=== PATIENT | female | born 1985 | race Caucasian/White ===

== ENCOUNTER 2017-06-26 17:12 | Emergency (ER) | payer SELFPAY ==
[2017-06-26 17:16] VITALS: BP 105/57; PULSE 70; TEMP 98; BMI 27.9
[2017-06-26] MEDS ORDERED: DEXAMETHASONE SOD PHOSPHATE 10 MG/1 ML VIAL ONE (17:54)
[2017-06-26] MEDS ORDERED: diphenhydrAMINE HCL 25 MG CAPSULE (FP) PO ONE ×2 (17:54→18:03)
[2017-06-26] MEDS ORDERED: DEXAMETHASONE SOD PHOSPHATE 10 MG/1 ML VIAL IM ONE (18:04)
--- NOTE | 2017-06-26 18:04 | PDOC ---
History of Present Illness - General Chief Complaint: Allergic Reaction Stated Complaint: ALLERGIC REACTION Time Seen by Provider: 06/26/17 17:42 History Source: Patient Exam Limitations: No Limitations - History of Present Illness Initial Comments: 06/26/17 17:59 Patient was seen in urgent care 2 days ago and started on Carafate and been for nail fungus on her feet. States today had onset of rash that started on her face and quickly progressed to her arms and her abdomen. Patient denies any swelling to lips tongue or mouth, denies any shortness of breath or wheezing. Has taken no medication for relief Timing/Duration: reports: just prior to arrival, getting worse Severity: reports: mild, moderate Associated Symptoms: reports: dizziness. denies: facial pain, fever/chills Past History - Travel Traveled outside of the country in the last 30 days: No Close contact w/someone who was outside of country & ill: No - Past Medical History Allergies/Adverse Reactions: Allergies Allergy/AdvReac Type Severity Reaction Status Date / Time No Known Allergies Allergy Verified 06/26/17 17:16 Home Medications: Ambulatory Orders Diphenhydramine HCl [Benadryl -] 25 mg PO Q8H PRN #21 capsule 06/26/17 Prednisone [Deltasone -] 20 mg PO BID #8 tablet 06/26/17 Asthma: No Cancer: No Cardiac Disorders: No Diabetes: No HTN: No Seizures: No Thyroid Disease: No - Psycho/Social/Smoking Cessation Hx Suicidal Ideation: No Smoking History: Never smoked Have you smoked in the past 12 months: No Information on smoking cessation initiated: No Hx Alcohol Use: No Drug/Substance Use Hx: No Hx Substance Use Treatment: No Review of Systems - Review of Systems Able to Perform ROS?: Yes Is the patient limited Urdu proficient: Yes Constitutional: Yes: Symptoms Reported, See HPI HEENTM: Yes: Symptoms Reported, See HPI, Nose Congestion Respiratory: Yes: See HPI. No: Symptoms reported, Cough, Wheezing : No: Symptoms Reported Musculoskeletal: Yes: Symptoms Reported Integumentary: Yes: Symptoms Reported, Lesions, Pruritus, Rash Neurological: No: Symptoms reported All Other Systems: Reviewed and Negative *Physical Exam - Vital Signs Last Vital Signs Temp Pulse Resp BP Pulse Ox 98 F 70 18 105/57 99 06/26/17 17:13 06/26/17 17:13 06/26/17 17:13 06/26/17 17:13 06/26/17 17:13 - Physical Exam General Appearance: Yes: Nourished, Appropriately Dressed, Apparent Distress HEENT: positive: Normal ENT Inspection, TMs Normal, Pharynx Normal (no swelling to lips, tongue, airway is patent, no airway interruption) Neck: positive: Supple. negative: Tender Respiratory/Chest: positive: Lungs Clear, Normal Breath Sounds. negative: Wheezing Cardiovascular: positive: Regular Rhythm, Regular Rate Gastrointestinal/Abdominal: positive: Soft. negative: Tender Musculoskeletal: positive: Normal Inspection Extremity: positive: Normal Capillary Refill, Normal Inspection, Normal Range of Motion Integumentary: positive: Normal Color, Other (fine neck your papular rash covering all of body including face with erythematous cheeks, and this mildly pruritic fine rash covering shoulders, neck, abdomen. 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 We'll medicate with Benadryl, steroid, and reevaluate Medical Decision Making - Medical Decision Making 06/26/17 18:49 Patient states feels mildly improved after her drawn and Benadryl. No swelling to face, tongue, no breathing problems. We'll discharge with additional 4 days of prednisone and encourage antihistamine use for the next 2 days. Stopping terfenabine *DC/Admit/Observation/Transfer Diagnosis at time of Disposition: Allergic reaction Qualifiers: Encounter type: initial encounter Qualified Code(s): T78.40XA - Allergy, unspecified, initial encounter - Discharge Dispostion Disposition: HOME Condition at time of disposition: Stable Admit: No - Referrals Referrals: Sabrina Yang MD [Primary Care Provider] - - Patient Instructions Printed Discharge Instructions: DI for Adverse Drug Reaction -- Allergic Additional Instructions: Rest, drink lots of fluids: Teas, water, soups Saltwater gargles. Consider humidifier in room at night Steamy showers/seem to face break up mucus Avoid contact with allergens, exposure to pollens, close windows on a windy day Lots of handwashing and good hygiene Continue [id number]-[id number] medications for symptomatic relief- may use allergic eyedrops for itching I Continue antihistamines daily until pollen season is over; Zyrtec, Claritin, Radha during the daytime and Benadryl at nighttime as will make sleepy Tylenol or Motrin for fever and pain Followup with private physician in one to 2 days as needed Consider following up with an marine electrician helper/hand riveter for skin testing and possible allergy shots Return to emergency department for worsened symptoms, fevers, dehydration - Post Discharge Activity Work/School Note: Back to Work
== END 2017-06-26 21:04 | disposition home or self-care (01) ==
LOC: JERFT 17:12
PROC: 3E0233Z Introduction of Anti-inflammatory into Muscle, Percutaneous Approach (ICD-10-PCS; principal; 2017-06-26)
DX: L27.0 Generalized skin eruption due to drugs and medicaments taken internally (principal); T45.0X5A Adverse effect of antiallergic and antiemetic drugs, initial encounter; Y92.039 Unspecified place in apartment as the place of occurrence of the external cause
CPT/HCPCS: 99281-25

== ENCOUNTER 2017-06-30 13:07 | Emergency (ER) | payer SELFPAY ==
[2017-06-30 13:12] VITALS: BP 108/55; PULSE 77; TEMP 98.8; BMI 28.5
--- NOTE | 2017-06-30 13:43 | PDOC ---
History of Present Illness - General Chief Complaint: Rash Stated Complaint: ALLERGIC RXN Time Seen by Provider: 06/30/17 13:22 History Source: Patient - History of Present Illness Timing/Duration: reports: constant Location: reports: generalized Past History - Past Medical History Allergies/Adverse Reactions: Allergies Allergy/AdvReac Type Severity Reaction Status Date / Time No Known Allergies Allergy Verified 06/30/17 13:12 Home Medications: Ambulatory Orders NK [No Known Home Medication] 06/30/17 Asthma: No Cancer: No Cardiac Disorders: No Diabetes: No HTN: No Seizures: No Thyroid Disease: No - Psycho/Social/Smoking Cessation Hx Suicidal Ideation: No Smoking History: Never smoked Have you smoked in the past 12 months: No Hx Alcohol Use: No Drug/Substance Use Hx: No Substance Use Type: None Hx Substance Use Treatment: No Review of Systems - Review of Systems Constitutional: No: Chills, Fever HEENTM: No: Throat Swelling Respiratory: No: Shortness of Breath Integumentary: Yes: Pruritus, Rash *Physical Exam - Vital Signs Last Vital Signs Temp Pulse Resp BP Pulse Ox 98.8 F 77 20 108/55 99 06/30/17 13:08 06/30/17 13:08 06/30/17 13:08 06/30/17 13:08 06/30/17 13:08 - Physical Exam General Appearance: Yes: Appropriately Dressed. No: Apparent Distress HEENT: positive: Normal Voice Neck: positive: Supple Respiratory/Chest: negative: Respiratory Distress Integumentary: positive: Dry, Warm, Rash (fine erythematous papular rash to face , trunk and extremities) Neurologic: positive: Fully Oriented, Alert, Normal Mood/Affect Medical Decision Making - Medical Decision Making 06/30/17 13:46 32-year-old female, denies any past medical history, presents to the ER for second time for rash. Patient was seen in ED approximately 5 days ago complaining of generalized pruritic rash that started 3 days after she was started on po terbinafine for onychomycosis at an urgent care center. On last visit was told to stop taking terbinafine which she has done and was started on benadryl and prednisone. Patient has discontinued medication but states rash is persistent. Denies any tongue swelling, voice changes or shortness of breath. Pt denies food or drug allergies in general and no h/o anaphylaxis. See exam M/l allergic rxn to new meds Has since discontinued meds Rash not better w/ benadryl or prednisone No resp symptoms Stable in ED -Will dc to continue steroids and take claritin or zyrtec as needed for itch -Given derm referral if rash persists 06/30/17 13:54 *DC/Admit/Observation/Transfer Diagnosis at time of Disposition: Rash and nonspecific skin eruption - Discharge Dispostion Disposition: HOME Condition at time of disposition: Good - Referrals Referrals: Coty Willard MD [Staff Physician] - - Patient Instructions Additional Instructions: Contine tomando la prednisona hasta que se complete Si benadryl no ayuda con picazn, tome zrytec o claritin segn sea necesario para picar Por favor, siga con el Dr. Willard de dermatologa si los sntomas persisten - Post Discharge Activity Work/School Note: Back to Work
== END 2017-06-30 13:56 | disposition home or self-care (01) ==
LOC: JERFT 13:07
DX: R21 Rash and other nonspecific skin eruption (principal)
CPT/HCPCS: 99281-25

== ENCOUNTER 2019-05-16 21:11 | Emergency (ER) | payer OTHER ==
[2019-05-16 21:25] VITALS: BMI 29.2
--- NOTE | 2019-05-16 21:34 | PDOC ---
Rapid Medical Evaluation Chief Complaint: Pain Time Seen by Provider: 05/16/19 21:30 Medical Evaluation: Allergies Allergy/AdvReac Type Severity Reaction Status Date / Time No Known Allergies Allergy Verified 05/16/19 21:21 Vital Signs Temp Pulse Resp BP Pulse Ox 98.3 F 92 H 18 123/76 100 05/16/19 21:21 05/16/19 21:21 05/16/19 21:21 05/16/19 21:21 05/16/19 21:21 05/16/19 21:31 Pt c/o: epigastric pain x 2 hrs after eating meat , no other complaints, no gi hx Pt on brief exam: epigastric tenderness with mild rt upper quadrant Pt ordered for: labs, meds, urine, protonix, toradol Pt to proceed to the ED Discharge Disposition - Diagnosis Epigastric pain - Discharge Dispostion Disposition: HOME Condition at time of disposition: Stable - Referrals Referrals: Feroz Johnson DO [Staff Physician] - Mckenzie Fraga DO [Staff Physician] - - Patient Instructions Additional Instructions: If you have recurrent episodes of this pain ,followup with a outpatient coder You may try maalox for relief Avoid fatty or fried foods Print Language: SPA - Post Discharge Activity
[2019-05-16] MEDS ORDERED: PANTOPRAZOLE SODIUM 40 MG in SODIUM CHLORIDE 100 ML IVPB ONE (21:35)
[2019-05-16] MEDS ORDERED: KETOROLAC TROMETHAMINE 30 MG/1 ML VIAL IVPUSH ONE (21:35)
[2019-05-17] MEDS ORDERED: MAG HYDROX/AL HYDROX/SIMETH 30 ML UNIT-DOSE CUP PO ONE (00:07)
[2019-05-17] MEDS ORDERED: PANTOPRAZOLE SODIUM 40 MG/100 ML BAG IVPB ONE (01:39)
[2019-05-17] MEDS ORDERED: KETOROLAC TROMETHAMINE 30 MG/1 ML VIAL ONE (01:39)
[2019-05-17 02:02] LABS: BASO % 0.9 % (0-2.0); EOS % 2.2 % (0-4.5); HEMATOCRIT 39.1 % (32.4-45.2); HEMOGLOBIN 13.4 GM/dL (10.7-15.3); LYMPH % 31.1 % (8-40); MCH 29.4 pg (25.7-33.7); MCHC 34.2 g/dl (32.0-36.0); MEAN PLT VOLUME 8.6 fl (7.5-11.1); MONO % 6.4 % (3.8-10.2); NEUT % 59.4 % (42.8-82.8); PLATELET COUNT 270 K/MM3 (134-434); RBC 4.55 M/mm3 (3.60-5.2); RDW 13.5 % (11.6-15.6); WHITE BLOOD COUNT 8.6 K/mm3 (4.0-10.0)
[2019-05-17 02:53] LABS: ALBUMIN 3.8 g/dl (3.4-5.0); BILIRUBIN,TOTAL 0.3 mg/dL (0.2-1); BLOOD UREA NITROGEN 13.8 mg/dL (7-18); CREATININE 0.8 mg/dL (0.55-1.3); POTASSIUM 4.5 mmol/L (3.5-5.1); TOT PROT 7.8 g/dl (6.4-8.2)
[2019-05-17 03:10] LABS: HCG,QUALITATIVE URINE Negative
--- NOTE | 2019-05-17 03:21 | PDOC ---
Documentation entered by Eladio Herman SCRIBE, acting as scribe for Sofia Velasquez MD. Sofia Velasquez MD: This documentation has been prepared by the aimeeibe, Eladio Herman SCRIBE, under my direction and personally reviewed by me in its entirety. I confirm that the documentation accurately reflects all work, treatment, procedures, and medical decision making performed by me. History of Present Illness - General Chief Complaint: Pain Stated Complaint: ABD PAIN Time Seen by Provider: 05/16/19 21:30 History Source: Patient Exam Limitations: No Limitations - History of Present Illness Initial Comments: 05/16/19 23:58 The patient is a 34 year old female with no significant past medical history who presents to the emergency department with epigastric pain since earlier this evening. The patient states that she had dinner this evening and at about 6 :30 pm she had a sudden onset of sharp epigastric pain that felt like a tightness. She states that since then her epigastric pain has been intermittent. She states that she attempted to relieve her pain with some tea and pain medication with no apparent relief. The patient denies any fever, chills, nausea, vomiting, diarrhea, constipation or urinary symptoms. She denies any chest pain, shortness of breath, headache or dizziness. The patient denies any other complaints. Past History - Past Medical History Allergies/Adverse Reactions: Allergies Allergy/AdvReac Type Severity Reaction Status Date / Time No Known Allergies Allergy Verified 05/16/19 21:21 Home Medications: Ambulatory Orders NK [No Known Home Medication] 06/30/17 Asthma: No Cancer: No Cardiac Disorders: No Diabetes: No HTN: No Seizures: No Thyroid Disease: No - Suicide/Smoking/Psychosocial Hx Smoking History: Never smoked Have you smoked in the past 12 months: No Hx Alcohol Use: No Drug/Substance Use Hx: No Substance Use Type: None Hx Substance Use Treatment: No Review of Systems - Review of Systems Able to Perform ROS?: Yes Comments:: 05/16/19 23:58 CONSTITUTIONAL: Absent: fever, no chills, no fatigue EYES: Absent: visual changes ENT: Absent: ear pain, no sore throat CARDIOVASCULAR: Absent: chest pain, no palpitations RESPIRATORY: Absent: cough, no SOB GI:(+)abdominal pain Absent: no nausea, no vomiting, no constipation, no diarrhea GENITOURINARY: Absent: dysuria, no frequency, no hematuria MUSKULOSKELETAL: Absent: back pain, no arthralgia, no myalgia SKIN: Absent: rash NEURO: Absent: headache *Physical Exam - Vital Signs Last Vital Signs Temp Pulse Resp BP Pulse Ox 98.3 F 92 H 18 123/76 100 05/16/19 21:21 05/16/19 21:21 05/16/19 21:21 05/16/19 21:21 05/16/19 21:21 - Physical Exam Comments: 05/17/19 00:00 GENERAL: Well-appearing, well-nourished. No apparent distress. HEENT: Normocephalic, atraumatic. PERRL, EOM intact. CARDIOVASCULAR: Normal S1, S2. Regular rate and rhythm. PULMONARY: Clear to auscultation bilaterally. ABDOMEN:(+)epigastric pain. Soft, non-distended, non-tender. EXTREMITIES: Normal ROM in all four extremities. No gross deformities. SKIN: Warm, dry. No rash NEUROLOGICAL: No focal neurological deficits. ED Treatment Course - LABORATORY CBC & Chemistry Diagram: 05/17/19 01:50 05/17/19 01:50 - RADIOLOGY Radiology Studies Ordered: Category Date Time Status ABDOMEN US -LIMITED [US] Stat Ultrasound 05/17/19 00:08 Taken Medical Decision Making - Medical Decision Making 05/17/19 02:03 34-year-old female presented with some epigastric pain that started after dinner.she denies nausea, vomiting, however. Ultrasound shows a normal common bile duct diameter 5 mm, unremarkable contracted gallbladder, right kidney and visualized aorta and pancreas are within normal limits fatty liver 05/17/19 02:04 differential includes gallstones, GERD, PUD cBC is unremarkable Chemistries show slight elevation in her LFTs Electrolytes are within normal limits, glucose and renal function are within normal limits She has a negative test 05/17/19 03:20 there is a sl bump in her lfts and she will be referred to GI 05/17/19 03:40 *DC/Admit/Observation/Transfer Diagnosis at time of Disposition: Epigastric pain - Discharge Dispostion Disposition: HOME Condition at time of disposition: Stable - Referrals Referrals: Feroz Johnson DO [Staff Physician] - Mckenzie Fraga DO [Staff Physician] - - Patient Instructions Additional Instructions: If you have recurrent episodes of this pain ,followup with a web content & social media manager You may try maalox for relief Avoid fatty or fried foods Print Language: SPA - Post Discharge Activity
[2019-05-17 03:32] LABS: URINE APPEARANCE CLEAR; URINE BILIRUBIN NEGATIVE (NEGATIVE); URINE COLOR YELLOW; URINE GLUCOSE (UA) NEGATIVE (NEGATIVE); URINE KETONE NEGATIVE (NEGATIVE); URINE LEUK ESTERASE NEGATIVE (NEGATIVE); URINE NITRITE NEGATIVE (NEGATIVE); URINE PROTEIN NEGATIVE (NEGATIVE)
[2019-05-17 05:53] VITALS: BP 120/69; PULSE 75; TEMP 98.4
== END 2019-05-17 04:28 | disposition home or self-care (01) ==
LOC: JER 21:11
PROC: 3E033GC Introduction of Other Therapeutic Substance into Peripheral Vein, Percutaneous Approach (ICD-10-PCS; principal; 2019-05-16)
PROC: 3E0333Z Introduction of Anti-inflammatory into Peripheral Vein, Percutaneous Approach (ICD-10-PCS; 2019-05-16)
DX: R10.13 Epigastric pain (principal)
CPT/HCPCS: 36415; 76705-TC; 80053; 81003; 83690; 84703; 85025; 99281-25

== ENCOUNTER 2022-03-27 20:13 | Emergency (ER) | payer OTHER ==
[2022-03-27 20:27] VITALS: BP 136/91; PULSE 90; TEMP 97.8; BMI 29.2
[2022-03-27 22:12] LABS: BASO % 0.5 % (0-2.0); EOS % 2.4 % (0-4.5); HEMATOCRIT 38.2 % (32.4-45.2); HEMOGLOBIN 12.8 GM/dL (10.7-15.3); MCH 28.1 pg (25.7-33.7); MCHC 33.6 g/dl (32.0-36.0); MEAN CELL VOLUME 83.6 fl (80-96); MONO % 5.6 % (3.8-10.2); NEUT % 77.5 % (42.8-82.8); PLATELET COUNT 325 10^3/uL (134-434); RBC 4.57 M/mm3 (3.60-5.2); RDW 13.1 % (11.6-15.6); WHITE BLOOD COUNT 11.4 K/mm3 (4.0-10.0)
[2022-03-27 22:28] LABS: ALBUMIN 4.3 g/dl (3.4-5.0); BLOOD UREA NITROGEN 11.6 mg/dL (7-18); CALCIUM 9.2 mg/dL (8.5-10.1); MAGNESIUM 2.5 mg/dL (1.8-2.4)
[2022-03-27 22:32] LABS: CREATININE 0.7 mg/dL (0.55-1.3)
[2022-03-27 22:33] LABS: BILIRUBIN,TOTAL 0.9 mg/dL (0.2-1); TOT PROT 8.3 g/dl (6.4-8.2)
== END 2022-03-27 23:28 | disposition home or self-care (01) ==
LOC: JERFT 20:13
DX: F41.9 Anxiety disorder, unspecified (principal)
CPT/HCPCS: 36415; 71046-TC-FY; 80053; 83735; 84443; 85025; 93005; 93010; 99285-25